=== PATIENT | male | born 1950 | race Caucasian/White ===

== ENCOUNTER 2017-06-02 09:03 | Observation (INO) | payer MEDICARE ==
[2017-06-02 11:08] LABS: ABS Basophils 0.1 10^3/ul (0-0.2); ABS Eosinophils 0.1 10^3/ul (0-0.6); ABS Lymphocytes 1.7 10^3/ul (1.0-4.8); ABS Monocytes 0.7 10^3/ul (0-0.8); ABS Neutrophils 4.7 10^3/ul (1.5-7.7); ABS Nucleated RBC 0 10^3/ul; Eosinophil % 1.8 % (0-6); Hematocrit 49 % (42-52); Hemoglobin 16.9 g/dl (14.0-18.0); Lymphocyte % 23.1 % (25-47); Mean Corpuscular HGB Conc 34 g/dl (31-36); Mean Corpuscular Hemoglobin 31 pg (27-31); Mean Corpuscular Volume 90 fL (80-94); Mean Platelet Volume 9 um3 (7.4-10.4); Nucleated Red Blood Cells % 0.3; Platelet Count 243 10^3/ul (150-450); Red Blood Count 5.47 10^6/ul (4.0-5.4); Red Cell Distribution Width 13 % (10.5-15); White Blood Count 7.2 10^3/ul (3.5-10.8)
[2017-06-02 11:20] LABS: EGFR Non-African American 75.4 (>60)
[2017-06-02 11:23] LABS: INR 0.91 (0.77-1.02)
--- NOTE | 2017-06-02 11:48 | RAD ---
Indication: Ataxia. CT of the brain was performed without IV contrast. Comparison is made with previous exam dated August 22, 2005. Ventricular structures are midline. No midline shift is noted. The extra-axial spaces are unremarkable. There is no evidence of intracranial mass or hemorrhage. No other high or low density lesions are identified. Mastoid air cells and paranasal sinuses are otherwise unremarkable. Overall no changes noted since previous exam of 2005. IMPRESSION: No intracranial mass or hemorrhage.
--- NOTE | 2017-06-02 11:58 | RAD ---
Indication: Ataxia. Single frontal view of the chest performed at 1115 hours was reviewed. Comparison is made with previous exam dated July 14, 2010. Cardiomegaly is noted. Lung almendarez demonstrate no pleural fluid, pneumonia or pneumothorax. IMPRESSION: NO ACTIVE CARDIOPULMONARY DISEASE IS NOTED.
[2017-06-02] MEDS ORDERED: Iohexol 350* (CONTRAST) 500 ML MDV IV ONE (13:20)
--- NOTE | 2017-06-02 14:20 | RAD ---
INDICATION: Dizziness. COMPARISON: CT brain June 02, 2017 TECHNIQUE: Axial source images were acquired with coronal and sagittal reconstructions. CT angiographic technique was utilized with injection of 80 mL Omnipaque 350. FINDINGS: Aortic arch: There are mild atherosclerotic changes of the arch and the great vessels arising from the arch. No significant stenosis is identified, however. Right carotid: The common carotid artery, carotid bifurcation, extracranial portions of the internal carotid artery, carotid artery at the skull base, carotid siphon, and carotid termination appear patent. There is minimal soft formation near the bifurcation. There are intimal calcifications involving the carotid siphon. Left carotid:The common carotid artery, carotid bifurcation, extracranial portions of the internal carotid artery, carotid artery at the skull base, carotid siphon, and carotid termination appear patent. There is soft and calcific plaque formation at the bifurcation with an estimated 40% diameter stenosis. There are moderate intimal calcifications of the left carotid siphon Right middle and anterior cerebral arteries: There are no CT angiographic abnormalities of the middle or anterior cerebral arteries. Left middle and anterior cerebral arteries: There are no CT angiographic abnormalities of the middle or anterior cerebral arteries Right vertebral: The CT angiographic appearance of the vertebral artery is normal. Left vertebral: The CT angiographic appearance of the vertebral artery is remarkable for soft and calcific plaque of the cephalad extent of the left vertebral artery V4 segment there is an estimated 50% diameter stenosis.. Basilar artery: The basilar artery and basilar tip appear normal. Posterior cerebral arteries: The distal distribution of the right and left posterior cerebral arteries is normal. [place] of [place]: The CT angiographic appearance of the [place] of [place] is normal. Source images show no evidence of mass or adenopathy within the neck. There are no focal brain parenchymal abnormalities or abnormal areas of enhancement. IMPRESSION: MULTISEGMENT ATHEROSCLEROTIC CHANGES BUT NO EVIDENCE OF A HEMODYNAMICALLY SIGNIFICANT STENOSIS, ANEURYSM, OR BRANCH OCCLUSION CPT II Codes: 3100F RS
--- NOTE | 2017-06-02 16:28 | RAD ---
INDICATION: MRI screening COMPARISON: None TECHNIQUE: Wislon and lateral views of the orbits were acquired FINDINGS: Orbits: There is no evidence of intraorbital metallic density foreign body. Other: None IMPRESSION: no metallic intraorbital foreign body
--- NOTE | 2017-06-02 17:10 | RAD ---
INDICATION: Dizziness. Ataxia. COMPARISON: CT brain same date; CTA head and neck same date TECHNIQUE: sagittal T1 FLAIR, axial diffusion, axial T1 FLAIR, axial T2, axial T2 FLAIR, and SWI images were acquired. FINDINGS: Craniocervical junction: The craniocervical junction appears normal. Ventricles/sulci: The ventricles and cisterns are normal in size and configuration for age. Brain parenchyma: The diffusion weighted images show a nonhemorrhagic, 1.1 cm area of restricted diffusion in the left karime consistent with acute ischemia. No other diffusion abnormalities are seen. There are additional mild T2-weighted hyperintensities in the periventricular and subcortical white matter consistent with chronic microvascular ischemia. Intracranial hemorrhage: There is no intracranial hemorrhage. Extra-axial spaces: There are no extra-axial fluid collections or masses. Orbits: There are no MR abnormalities of the orbital structures. Paranasal sinuses/mastoid: There is mild mucosal thickening in the left maxillary antra. The remaining paranasal sinuses are clear. The mastoid air cells are well aerated.. Vascular: No abnormalities are seen. Other: None IMPRESSION: 1. Acute, nonhemorrhagic ischemic focus left karime. 2. Mild underlying chronic microvascular ischemic change in periventricular and subcortical locations. 3. Chronic left maxillary antral sinusitis Findings called to ED at 1706 hours.
[2017-06-02] MEDS ORDERED: Ondansetron INJ* 2 MG/ML VIAL IV PRN (17:41)
[2017-06-02] MEDS ORDERED: Acetaminophen TAB* 325 MG PO PRN (17:41)
[2017-06-02] MEDS ORDERED: Enoxaparin(*) 40 MG/0.4 ML SYR SUBCUT SCH (18:00)
--- NOTE | 2017-06-02 18:02 | ED ---
Catarino Rodrigez Julia, scribed for Anton Castro on 06/02/17 at 1103 . Neurological HPI - HPI Summary HPI Summary: This patient is a 66 year old M presenting to [facility] accompanied by his with a chief complaint of consistent changes in speech and balance since yesterday at afternoon. Patient reports joint pain in bilateral upper extremities. Patient denies weakness, numbness, chest pain, fever, SOB, and chest palpitations. The patient rates the pain 3/10 in severity. - History of Current Complaint Chief Complaint: EDHypertension Stated Complaint: DIZZINESS,SLURRED SPEECH Time Seen by Provider: 06/02/17 10:39 Hx Obtained From: Patient Onset/Duration: Started hours ago Timing: Constant Neurological Deficit Location: Generalized - speech and balance Pain Intensity: 3 Pain Scale Used: 0-10 Numeric Character: Impaired Speech, Other: - balance changes Related Hx: Medication Comliant - HTN medication - Allergy/Home Medications Allergies/Adverse Reactions: Allergies Allergy/AdvReac Type Severity Reaction Status Date / Time No Known Allergies Allergy Verified 06/02/17 11:08 Home Medications: Home Medications Aspirin EC TAB* [Ecotrin EC TAB*] 325 mg PO DAILY 06/02/17 [History Confirmed ] Hydrochlorothiazide TAB* [Hydrodiuril TAB*] 25 mg PO DAILY 06/02/17 [History Confirmed 06/02/17] Ramipril CAP* [Altace CAP*] 10 mg PO DAILY 06/02/17 [History Confirmed 06/02/17] Rosuvastatin (NF) [Crestor (NF)] 5 mg PO DAILY 06/02/17 [History Confirmed 06/02] PMH/Surg Hx/FS Hx/Imm Hx Cardiovascular History: Reports: Hx Hypertension - controlled with meds - Immunization History Date of Influenza Vaccine: 01/26 Infectious Disease History: No Infectious Disease History: Denies: Traveled Outside the [place] in Last 30 Days - Social History Alcohol Use: Occasionally Alcohol Amount: last drank 05/31/17 Substance Use Type: Reports: None Smoking Status (MU): Never Smoked Tobacco Review of Systems Negative: Fever Negative: Palpitations, Chest Pain Negative: Shortness Of Breath Neurological: Other - impaired balance Positive: Slurred Speech. Negative: Weakness, Numbness All Other Systems Reviewed And Are Negative: Yes Physical Exam - Summary Physical Exam Summary: Appearance: Well appearing, no pain distress Skin: warm, dry, reflects adequate perfusion Head/face: normal Eyes: EOMI, CHATO ENT: normal Neck: supple, non-tender Respiratory: CTA, breath sounds present Cardiovascular: RRR, pulses symmetrical Abdomen: non-tender, soft Bowel: present Musculoskeletal: normal, strength/ROM intact Neuro: alert and oriented Triage Information Reviewed: Yes Vital Signs On Initial Exam: Initial Vitals Temp Pulse Resp BP Pulse Ox 98.3 F 100 18 198/114 93 06/02/17 09:05 06/02/17 09:05 06/02/17 09:05 06/02/17 09:05 06/02/17 09:05 Vital Signs Reviewed: Yes Diagnostics - Vital Signs Vital Signs Temp Pulse Resp BP Pulse Ox 06/02/17 10:00 90 20 146/79 91 06/02/17 09:44 96 20 191/89 96 06/02/17 09:30 22 146/83 06/02/17 09:17 24 191/89 06/02/17 09:05 98.3 F 100 18 198/114 93 - Laboratory Lab Results: Lab Results 06/02/17 06/02/17 06/02/17 Range/Units 09:25 09:25 09:25 WBC 7.2 (3.5-10.8) 10^3/ul RBC 5.47 H (4.0-5.4) 10^6/ul Hgb 16.9 (14.0-18.0) g/dl Hct 49 (42-52) % MCV 90 (80-94) fL MCH 31 (27-31) pg MCHC 34 (31-36) g/dl RDW 13 (10.5-15) % Plt Count 243 (150-450) 10^3/ul MPV 9 (7.4-10.4) um3 Neut % (Auto) 64.7 (38-83) % Lymph % (Auto) 23.1 L (25-47) % Stephenson % (Auto) 9.6 H (1-9) % Eos % (Auto) 1.8 (0-6) % Baso % (Auto) 0.8 (0-2) % Absolute Neuts (auto) 4.7 (1.5-7.7) 10^3/ul Absolute Lymphs (auto) 1.7 (1.0-4.8) 10^3/ul Absolute Monos (auto) 0.7 (0-0.8) 10^3/ul Absolute Eos (auto) 0.1 (0-0.6) 10^3/ul Absolute Basos (auto) 0.1 (0-0.2) 10^3/ul Absolute Nucleated RBC 0 10^3/ul Nucleated RBC % 0.3 INR (Anticoag Therapy) 0.91 (0.77-1.02) APTT 33.4 (26.0-36.3) seconds Sodium 137 (133-145) mmol/L Potassium 3.7 (3.5-5.0) mmol/L Chloride 103 (101-111) mmol/L Carbon Dioxide 28 (22-32) mmol/L Anion Gap 6 (2-11) mmol/L BUN 16 (6-24) mg/dL Creatinine 0.99 (0.67-1.17) mg/dL Est GFR ( Amer) 97.0 (>60) Est GFR (Non-Af Amer) 75.4 (>60) BUN/Creatinine Ratio 16.2 (8-20) Glucose 158 H (70-100) mg/dL Calcium 9.8 (8.6-10.3) mg/dL Total Bilirubin 0.60 (0.2-1.0) mg/dL AST 22 (13-39) U/L ALT 25 (7-52) U/L Alkaline Phosphatase 64 (34-104) U/L Troponin I 0.00 (<0.04) ng/mL Total Protein 7.6 (6.4-8.9) g/dL Albumin 4.1 (3.2-5.2) g/dL Globulin 3.5 (2-4) g/dL Albumin/Globulin Ratio 1.2 (1-3) Triglycerides Pending Cholesterol Pending LDL Cholesterol Pending HDL Cholesterol Pending Result Diagrams: 06/02/17 09:25 06/02/17 09:25 Lab Statement: Any lab studies that have been ordered have been reviewed, and results considered in the medical decision making process. - Radiology CXR Radiology Interpretation Completed By: Radiologist - NO ACTIVE CARDIOPULMONARY DISEASE IS NOTED. ED Physician has reviewed this report. - CT Brain CT Interpretation Completed By: Radiologist - No intracranial mass or hemorrhage. ED Physician has reviewed this report. Head CTA CT Interpretation Completed By: Radiologist - MULTISEGMENT ATHEROSCLEROTIC CHANGES BUT NO EVIDENCE OF A HEMODYNAMICALLY SIGNIFICANT STENOSIS, ANEURYSM, OR BRANCH OCCLUSION. ED Physician has reviewed this report. - EKG 11:35 Cardiac Rate: NL - at 93 EKG Rhythm: Sinus Rhythm EKG Interpretation: Q waves in inferior leads NIH Scale - NIH Scale Level of Consciousness: Alert/Keenly Responsive Ask Patient the Month and His/Her Age: Both Correct Ask Pt to Open/Close Eyes and [place] Mixer Operator/Release Non-Paretic Hand: Both Correctly Best Gaze (Only Horizontal Eye Movement): Normal Visual Field Testing: No Visual Loss Facial Paresis-Pt to Smile & Close Eyes or Grimace Symmetry: Minor Paralysis Motor Function - Right Arm: No Drift-Holds 10 Seconds Motor Function - Left Arm: No Drift-Holds 10 Seconds Motor Function - Right Leg: No Drift-Holds 10 Seconds Motor Function - Left Leg: No Drift-Holds 10 Seconds Limb Ataxia-Must be out of Proportion to Weakness Present: Absent Sensory (Use Pinprick to Test Arms/Legs/Trunk/Face): Normal Best Language (Describe Picture, Name Items): No Aphasia Dysarthria (Read Several Words): Slurs Some Words Course/Dx - Course Course Of Treatment: Patients present with speech and stabillity changes. A Brain CT, EKG, and CXR was unremarkable. Bloodwork is obtained. Dr. Jenkins recomeded a MRI and Head/Neck CTA. Dr. Jenkins evaluated patient in the ED and recommends EEG. CTA reveals stherosclerotic changes. At 15:45 Dr. Cruz agrees to admit. - Differential Dx Differential Diagnoses Neuro: Positive: Cerebrovascular Accident, Headache, Intracranial Bleed, Metabolic Abnormality, Transient Ischemic Attack - Diagnoses Provider Diagnoses: CVA (cerebral vascular accident) - Physician Notifications Discussed Care Of Patient With: Fredy Jenkins Time Discussed With Above Provider: 12:25 Instructed by Provider To: Other - order MRI and a head and neck CTA, MD will see in ED - Critical Care Time Critical Care Time: 30-74 min Discharge - Discharge Plan Condition: Fair Disposition: ADMITTED TO [facility] documentation as recorded by the Catarino syed Julia accurately reflects the service I personally performed and the decisions made by , Anton Castro.
--- NOTE | 2017-06-02 19:31 | CONS ---
CONSULTATION NOTE: DATE OF CONSULT: 06/02/17 PATIENT OF: Dr. Santiago Johns and Dr. Castro. HISTORY OF PRESENT ILLNESS: This is a 66-year-old man who I am evaluated for a possible stroke. He had several beers on Wednesday, although he usually does not drink significantly and had some imbalance first thing on Wednesday morning which he attributed to the drinking; however, his speech was not slurred then and the imbalance went away. However, beginning at noon at 1, he had significantly slurred speech which cleared over a few hours. Later that night at about 6 developed sudden slurring of speech and some imbalance as well, which then improved, but then this morning when he had imbalance in the morning again and some slurred speech, they decided to come into the emergency room. He feels back to normal now and his thinks his speech and walk are close to normal. At this point, his speech she feels is back to normal and she noticed some subtle changes when I walked him that she thinks is new. She also noted when I asked her that there is a change in his right side of his face, it is new asymmetry that I was noticing independently. He had 10 years an episode of slurred speech that apparently never received a formal diagnosis despite an evaluation. He has risk factors for stroke including his medical problems of high blood pressure and elevated cholesterol. He does not smoke, drink, or use drugs. PAST SURGICAL HISTORY: He has had no surgeries recently. MEDICATIONS: Include: 1. Altace 10 mg daily. 2. Aspirin 325 daily. 3. Crestor 5 mg daily. 4. Hydrochlorothiazide 25 mg daily. ALLERGIES: He has no known allergies. FAMILY HISTORY: Of note, his father of a large heart attack and his brother has atrial fibrillation. REVIEW OF SYSTEMS: He has had no palpitations or racing heart. Review of systems is negative in all 14 spheres, other than the HPI. PHYSICAL EXAM: Temperature 98.3, pulse 96, respirations 25, blood pressure 154/ 83. He is alert and oriented. His speech sounded smooth. Cranial nerves II through XII were intact other than he had a mild right facial weakness with his right eye slightly more open and decreased nasolabial fold. Discs were sharp. Motor exam revealed normal tone and strength. Negative pronator drift. Finger- to-nose is intact. Rapid alternating movement was intact. His gait was slightly wide based, but he says that this is a chronic issue for him, but when he walk, he had decreased right arm swing compared to his left, although he did swing his arm and did not hold it stiffly, it is just decreased and his noticed this as well. Sensation intact to light touch. Reflexes were 2+ in equal downing toes. Neck was supple. Chest: Clear. Cardiovascular: Regular rate and rhythm. Abdomen is soft with positive bowel sounds. DIAGNOSTIC STUDIES/LAB DATA: Labs include normal CMP. His blood sugar was 158. He has normal CBC, normal INR and PTT. His CT scan was reviewed and was within normal limits. He had about a 50% stenosis of his left vertebral artery and had 40% stenosis in his left carotid. ASSESSMENT AND PLAN: With the impression being multisegment atherosclerotic changes, but no major stenosis or occlusion or aneurysm. I discussed with Odin and his in detail that I thought he had a small stroke with some signs of right facial weakness and decreased arm swing and in the setting of intermittent but clearly slurred speech occurring acutely and then improving, as well as feeling of imbalances could well be posterior circulation, minor stroke which would not be expected show up on CT scan, but could possibly show up on MRI scan but not definitively. Given his atherosclerotic disease, I would begin Plavix in addition to his aspirin now once he has had a swallowing evaluation. He has had risk for atrial fibrillation especially with the positive family history and this needs to be evaluated with some monitoring overnight and also a cardiac echo. He will need fasting lipids in the morning and if his LDL is above 70, his statin will need to be adjusted accordingly. I discussed with him at length that if symptoms that are possibly consistent with stroke at home in the future is a short time window for coming in and the sooner he came in the more likely he would get treatments and more likely treatment would be helpful and would have less side effect if he came in sooner rather than later, so it would be a medical emergency and he should not wait like he did now. I also discussed since he was thinking about going home that it would be against medical advice because the risk of further stroke is highest shortly after the initial stroke and that they figuring out whether he has this due to arthrosclerotic disease versus cardiac would change treatment. Also depending on the type of stroke he had, there might be further acute intervention depending on the exact clinical course. I have discussed the case with Dr. Castro as well with my recommendations. Thank you for sharing his case. [id number]/[facility] #: [id number] KISHA
[2017-06-02] MEDS: Clopidogrel TAB* 75 MG PO SCH (20:50)
--- NOTE | 2017-06-02 22:32 | HP ---
CC: Dr. Santiago Johns * ADMISSION HISTORY AND PHYSICAL: DATE OF ADMISSION: PRIMARY CARE PROVIDER: Dr. Santiago Johns. MY ATTENDING WHILE IN THE HOSPITAL: Dr. Marcie Velázquez.* (DICTATED BY ALLY ODONNELL) CHIEF COMPLAINT: Slurred speech, unsteadiness x1 day. HISTORY OF PRESENT ILLNESS: Mr. Silva is a 66-year-old male with past medical history significant for hypertension, hyperlipidemia, who presents with slurred speech and possibly garbled speech according to his starting around noon on 06/01/17. The patient noticed that he was "talking funny" and his states she could not understand that he was just saying nonsensical words, not necessarily slurring of speech. The patient then repeated himself and it is under the effect of the same. The patient also states that that morning when he woke up he felt unsteady. There was no dizziness, but he felt the need to hold on to something, never fell, never had any palpitations, change in vision, headache, chest pain, shortness of breath, nausea or vomiting. The patient had similar episode like this 10 years ago that was short and self resolving while he was at work and his coworkers told him he was not making sense. The patient denies recent illnesses, fevers, chills, diarrhea, constipation. The patient recently had a stress test due to an outpatient EKG in his primary care provider 's office, which he states was negative and had no repeat abnormal EKGs. The patient has had no episodes of chest pain. The patient denies a history of MIs. The patient denies diabetes. The patient had 10 beers Wednesday night for a special occasion, but denies routine alcohol use, having an occasional drink. PAST MEDICAL HISTORY: Hypertension, hyperlipidemia, arthritis, diverticulosis, tubular adenoma removal. MEDICATIONS: 1. Ramipril 10 mg p.o. daily. 2. Aspirin 325 mg p.o. daily. 3. Rosuvastatin 5 mg p.o. daily. 4. Hydrochlorothiazide 25 mg p.o. daily. ALLERGIES: Seasonal. No known drug allergies. FAMILY HISTORY: The patient's mother of unknown cancer. The patient's father of AL. The patient has a brother with cancer, brother with diabetes , and a brother with AFib. The patient is one of 6 children. SOCIAL HISTORY: The patient has never smoked. The patient is an occasional drinker. The patient denies illicit drug use. 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 The patient is and has 2 children. REVIEW OF SYSTEMS: A 14-point review of systems was reviewed and was negative except as above. PHYSICAL EXAMINATION GENERAL: The patient is a 66-year-old obese male, who appears stated age, has a visible left facial droop and is sitting comfortably in the bed, in no acute distress. VITAL SIGNS: Temperature 98.3, heart rate 100, respiratory rate 18, oxygen saturation 93% on room air, blood pressure 198/114. Upon arrival to the emergency department, 158/89 most recently in the emergency department. HEENT: Head: Normocephalic, atraumatic. Sclerae anicteric. No conjunctival injection. Nasal mucosa moist. Oral mucosa moist. No pharyngeal erythema, discharge, or exudate. NECK: Supple, nontender. No lymphadenopathy. No carotid bruit auscultated. RESPIRATORY: Clear to auscultation bilaterally. No wheezes, rales, or rhonchi. Good air exchange bilaterally. CARDIAC: Regular rate and rhythm. No clicks, murmurs, gallops, or rubs. Pulses are 2+ in bilateral dorsalis pedis, posterior tibialis, and radial areas. No lower extremity edema noted. ABDOMEN: Soft, nontender, nondistended. Bowel sounds present, normoactive in all 4 quadrants. No hepatosplenomegaly or abdominal bruits auscultated. NEURO: The patient has a slight resting left-sided facial droop. The patient' s forehead wrinkles symmetrically. The patient smiles symmetrically. The patient is able to keep eye closed against force. The patient is able to inflate cheeks. The patient's extraocular movements intact. Visual almendarez intact to confrontation. Neck rotation and shoulder abduction 5/5 strength bilaterally. Neck strength 5/5 in the bilateral upper and lower extremity distally and proximally. Sensation to light touch intact in the bilateral upper and lower extremities distally and proximally. Reflexes are 2+ in the bilateral biceps, patellar and Achilles areas. Babinski is downgoing bilaterally. PSYCHIATRIC: The patient is somewhat reserved and irritable, but otherwise pleasant and cooperative. SKIN: Clean, dry, and intact. No rash. DIAGNOSTIC STUDIES/LAB DATA: White blood count 7.2, red blood cell count 4.74 , hemoglobin 16.9, hematocrit 49, MCV 90, MCH 31, MCHC 34, platelet count 243.91 , aPTT 33.4. Sodium 137, potassium 3.7, chloride 103, carbon dioxide 28, anion gap 6, BUN 16, creatinine 0.99, glucose 158, calcium 9.8, total bilirubin 0.6, AST 22, ALT 25, alkaline phosphatase 64, troponin I 0.00, total protein 7.6, albumin 4.1, globulin 3.5. Triglycerides, LDL cholesterol and hemoglobin A1c all pending. Orbit x-ray from 06/02/17 read as nonmetallic intraorbital foreign body. Chest x- ray read as no active cardiopulmonary disease. Electrocardiogram shows normal sinus rhythm. No ST segment abnormalities and no blocks, hypertrophy, or enlargement. No ST segment changes. Rate of 93, QTc of 425, normal axis. No other abnormalities. No significant changes from previous exam. Brain CT read as no intracranial mass or hemorrhage. Head CTA read as multisegment atherosclerotic changes and no evidence of hemodynamically significant stenosis, aneurysm, or branch occlusion. Brain MRI from 06/02/17 read as acute nonhemorrhagic ischemic focus left karime, mild underlying chronic microvascular ischemic changes in the periventricular subcortical locations, chronic left maxillary antral sinusitis. ASSESSMENT AND PLAN: IMPRESSION: The patient is a 66-year-old male with past medical history significant for hypertension and hyperlipidemia who presents with approximately 30 hours after onset of slurred speech or speaking nonsense as well as brief episode of ataxia with ongoing left-sided facial droop who has essentially returned to his baseline, but has a large area of stroke in his left karime on MRI exam. The patient will be admitted to the hospital for telemetry monitoring , transthoracic echocardiogram and other lipid panel, hemoglobin A1c and maximization of secondary prevention of stroke as well as hemodynamic monitoring. 1. Ischemic stroke, left karime. The patient has an acute ischemic stroke on MRI. Appreciate Neurology input. The patient is well past the window for TPA and has most of his neurological deficits resolved. At this point, the patient will be admitted to the hospital for determining the etiology of the stroke, though it appears to be thrombotic given the patient's high pertinent of atherosclerotic plaque in his brain, hypertension and position of the stroke; however, embolic stroke cannot be ruled out. The patient will have a transthoracic echocardiogram with bubble study to assess for PFO and risk for embolic stroke as well as to assess for mural thrombus or predisposition to atrial fibrillation. The patient will be monitored on telemetry. The patient has a lipid panel pending and will have a repeat fasting lipid panel done in the morning. The patient has a hemoglobin A1c pending. The patient's glucose was elevated in the emergency department. The patient had been eating today. Based on the SAMMPRIS trial, the patient could have maximized secondary prevention with a combination of aspirin, Plavix, and high dose rosuvastatin. The patient is currently on low dose rosuvastatin at 5 mg p.o. daily. We will discuss with the patient increasing this to 40 mg daily. The patient was hypertensive at 190/114 upon presentation to the emergency department. However , his blood pressure is currently 158/89. Based on the size of the patient's stroke, we will allow permissive hypertension, not treat high blood pressure unless above 180/110. We will hold the patient's antihypertensives in the morning. 2. Hypertension. We will have permissive hypertension as above. Hold enalapril and hydrochlorothiazide in the morning and reintroduce as tolerated. 3. Hyperlipidemia. We will discuss with the patient increasing rosuvastatin to 40 mg p.o. daily as above. 4. FEN. The patient passed a swallow eval. The patient will have a heart healthy diet without caffeine. The patient will not have fluids unless his blood pressure drops into the normal range. 5. DVT prophylaxis. The patient will be started on Lovenox subcu q.24 hours. The patient is a high risk based on age and obesity. 6. Code status. The patient will be a full code. The patient's surrogate decision maker is his , Hyacinth Silva. 7. Disposition. The patient is admitted for observation to telemetry. TIME SPENT: Approximately 60 minutes were spent on this admission, 30 of which was spent [id number] with the patient obtaining history and physical and discussing treatment plan. This plan has been discussed with my attending Dr. Marcie Velázquez and she is in agreement. ALLY ODONNELL [id number]/[facility] #: [id number] KISHA
[2017-06-03 06:34] LABS: ABS Basophils 0.1 10^3/ul (0-0.2); ABS Eosinophils 0.1 10^3/ul (0-0.6); ABS Lymphocytes 2.1 10^3/ul (1.0-4.8); ABS Monocytes 1.1 10^3/ul (0-0.8); ABS Neutrophils 5.5 10^3/ul (1.5-7.7); ABS Nucleated RBC 0 10^3/ul; Eosinophil % 1.5 % (0-6); Hematocrit 50 % (42-52); Hemoglobin 17.2 g/dl (14.0-18.0); Lymphocyte % 23.3 % (25-47); Mean Corpuscular HGB Conc 35 g/dl (31-36); Mean Corpuscular Hemoglobin 31 pg (27-31); Mean Corpuscular Volume 90 fL (80-94); Mean Platelet Volume 9 um3 (7.4-10.4); Nucleated Red Blood Cells % 0.2; Platelet Count 245 10^3/ul (150-450); Red Blood Count 5.51 10^6/ul (4.0-5.4); Red Cell Distribution Width 13 % (10.5-15); White Blood Count 8.8 10^3/ul (3.5-10.8)
[2017-06-03 06:47] LABS: EGFR Non-African American 74.5 (>60)
[2017-06-03 08:13] VITALS: BP 161/89
[2017-06-03] MEDS ORDERED: Aspirin EC TAB* 325 MG PO SCH (09:00)
[2017-06-03] MEDS ORDERED: Atorvastatin* 10 MG TAB PO SCH (09:00)
[2017-06-03] MEDS: Clopidogrel TAB* 75 MG PO SCH (09:04)
--- NOTE | 2017-06-03 13:32 | ECHO ---
Patient: RAMIRO BALTAZAR Rec#: [id number] : 1950 Date: 06/03/2017 Age: 66y Height: 175.26 cm / 69.0 in Weight: 113.4 kg / 249.9 lbs Sex: M BSA: 2.27 Room#: 431 Admit Date#: 06/02/2017 Type: Inpatient Referring: Anton Castro Reading: Tash Hilliard MD [employer] Cook: Taylor Arenas RDCS CC: Santiago Johns MD Transthoracic Echocardiogram Indication: CVA BP: 154/83 HR: 77 Rhythm: NSR Findings History: HTN, HLD. Technical Comments: The study quality is fair. The study is technically limited due to poor acoustic windows. The study is technically limited due to patient body habitus. Completed at 1200. Left Ventricle: The left ventricular chamber size is normal. Moderate concentric left ventricular hypertrophy is observed. Global left ventricular wall motion and contractility are within normal limits. There is normal left ventricular systolic function. The estimated ejection fraction is 60-65%. Abnormal left ventricular diastolic function is observed. Abnormal left ventricular diastolic filling is observed, consistent with impaired relaxation. Left Atrium: The left atrium is moderately dilated. Right Ventricle: The right ventricle is mildly dilated. The right ventricular global systolic function is mildly reduced.[place] relatively hypokinetic. Right Atrium: The right atrium is mild to moderately dilated. A patent foramen ovale is not demonstrated by color Doppler. Aortic Valve: The aortic valve is trileaflet. The aortic valve leaflets are mildly thickened. There is no evidence of aortic regurgitation. There is no evidence of aortic stenosis. Mitral Valve: The mitral valve leaflets are mildly thickened. There is mild mitral regurgitation. There is no evidence of mitral stenosis. Tricuspid Valve: The tricuspid valve leaflets are normal. There is trace tricuspid regurgitation. Unable to estimate the right ventricular systolic pressure. There is no tricuspid stenosis. Pulmonic Valve: The pulmonic valve structure is not well visualized. There is a trace pulmonic regurgitation. There is no pulmonic stenosis. Pericardium: There is no significant pericardial effusion. A pericardial fat pad is visualized. Aorta: There is moderate dilatation of the ascending aorta. There is no dilatation of the aortic arch. There is moderate dilatation of the aortic root. Pulmonary Artery: The main pulmonary artery is not well visualized. Venous: The inferior vena cava appears normal in size. There is a greater than 50% respiratory change in the inferior vena cava dimension. Contrast: Normal saline was used as contrast for the bubble study. Images 88 and 89. Intravenous contrast was used to help determine presence of intracardiac shunting. Conclusions The study is technically limited due to patient body habitus. Completed at 1200. Moderate concentric left ventricular hypertrophy is observed. Global left ventricular wall motion and contractility are within normal limits. Abnormal left ventricular diastolic function is observed. The estimated ejection fraction is 60-65%. The right ventricular global systolic function is mildly reduced, the apex relatively hypokinetic. Bi atrial enlargement. No evidence of cardiopulmonary shunting based on color Dopper and bubble study, but limited imaging. All valves appear structurally normal good function. There is mild mitral regurgitation. There is trace tricuspid regurgitation. There is moderate dilatation of the ascending aorta: 4.1 cm. No prior echo to compare. Measurements Name Value Normal Range RVIDd (AP) 2D 3.5 cm (0.9 - 2.6) RVDdMajor (2D) 4.6 cm (2.2 - 4.4) RAd ISD 4CH 5.6 cm (3.4 - 4.9) RA (A4C)W 4.1 cm (2.9 - 4.6) IVSd (2D) 1.4 cm (0.6 - 1) LVPWd (2D) 1.3 cm (0.6 - 1) LVIDd (2D) 4.7 cm (3.6 - 5.4) LVIDs (2D) 3.4 cm - LV FS (2D) 26 % (25 - 45) Aortic Annulus 2.2 cm (1.4 - 2.6) Ao root diameter (2D) 4.1 cm (2.1 - 3.5) Ascending Ao 4.1 cm (2.1 - 3.4) Aortic arch 2.9 cm (1.8 - 3.4) LA dimension (AP) 2D 3.9 cm (2.3 - 3.8) LAd ISD 4CH 6.9 cm (2.9 - 5.3) LA ISD 4CH W 5.5 cm (2.5 - 4.5) Name Value Normal Range LA ESV SP 4CH (A/L) 136 ml - LA ESV SP 2CH (A/L) 70 ml - LA ESV BP (A/L) 98 ml - LA ESV BP (A/L) index 43 ml/m2 - LA ESV SP 4CH (MOD) 122 ml - LA ESV SP 2CH (MOD) 67 ml - Name Value Normal Range MV E-wave Vmax 0.49 m/sec - MV deceleration time 217.8 msec - MV A-wave Vmax 0.79 m/sec - MV E:A ratio 0.62 ratio - LV septal e' Vmax 0.05 m/sec - LV lateral e' Vmax 0.05 m/sec - LV E:e' septal ratio 9.8 ratio - LV E:e' lateral ratio 9.8 ratio - Name Value Normal Range AV Vmax 1.3 m/sec - AV VTI 27.16 cm - AV peak gradient 6.85 mmHg - AV mean gradient 4.33 mmHg - LVOT Vmax 1.02 m/sec - LVOT VTI 19.53 cm - LVOT peak gradient 4.21 mmHg - LVOT mean gradient 2.16 mmHg - BASHIR Vmax 0.72 m/sec - Name Value Normal Range IVC diameter 1.7 cm - Name Value Normal Range PV Vmax 0.91 m/sec - PV peak gradient 3.37 mmHg -
== END 2017-06-03 15:45 | disposition home or self-care (01) ==
LOC: ED 09:03 → MEDTELE 15:53
PROVIDERS: ADMIT Internal Medicine; ATTEND Internal Medicine
DX: I63.9 Cerebral infarction, unspecified (principal); I10 Essential (primary) hypertension; E78.5 Hyperlipidemia, unspecified; Z79.899 Other long term (current) drug therapy; R94.31 Abnormal electrocardiogram [ECG] [EKG]
CPT/HCPCS: 36415; 70030; 70450; 70496; 70498; 70551; 71045; 80048; 80053; 80061; 83036; 83735; 84484; 85025; 85610; 85730; 93005; 93306; 99291; A9270-GY; G0378; J1650; Q9967